=== PATIENT | male | born 2000 | race Caucasian/White ===

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

== ENCOUNTER 2018-12-07 08:15 | Emergency (ER) | payer OTHER ==
[2018-12-07 08:32] VITALS: BP 119/66
--- NOTE | 2018-12-07 08:41 | UC ---
Throat Pain/Nasal Homero HPI - HPI Summary HPI Summary: sore throat x 5 days pain is 7 out of 10, worse with eating , better with Tylenol nasal congestion , cough , pnd, no fever, no chills, + body aches - History of Current Complaint Chief Complaint: UCGeneralIllness Stated Complaint: ST Time Seen by Provider: 12/07/18 08:34 Hx Obtained From: Patient Onset/Duration: Gradual Onset, Lasting Days - 5, Still Present Severity: Moderate Pain Intensity: 7 Cough: Nonproductive Associated Signs & Symptoms: Positive: Nasal Discharge. Negative: Drooling, Wheezing, Hoarseness, Sinus Discomfort, Fever, Vomiting, Rash - Allergies/Home Medications Allergies/Adverse Reactions: Allergies Allergy/AdvReac Type Severity Reaction Status Date / Time No Known Allergies Allergy Verified 12/07/18 08:29 Home Medications: Home Medications Fexofenadine/Pseudoephedrine [Irma-D 24 Hour Tablet] 1 each PO DAILY [History Confirmed 12/07/18] Fluticasone NASAL SPRAY 50MCG* [Flonase NASAL SPRAY 50MCG*] 2 spray BOTH NARES DAILY 12/07/18 [History Confirmed 12/07/18] PMH/Surg Hx/FS Hx/Imm Hx Previously Healthy: Yes - Surgical History Surgical History: Yes Surgery Procedure, Year, and Place: T&A, tubes - Family History Known Family History: Negative: Diabetes - Social History Alcohol Use: Occasionally Substance Use Type: None Smoking Status (MU): Never Smoked Tobacco - Immunization History Vaccination Up to Date: Yes Review of Systems All Other Systems Reviewed And Are Negative: Yes Constitutional: Positive: Chills Skin: Positive: Negative Eyes: Positive: Negative ENT: Positive: Sore Throat, Nasal Discharge Respiratory: Positive: Cough Cardiovascular: Positive: Negative Is Patient Immunocompromised?: No Physical Exam Triage Information Reviewed: Yes Appearance: Well-Appearing, No Pain Distress, Well-Nourished Vital Signs: Initial Vital Signs Temp 98.2 F 12/07/18 08:27 Pulse 68 12/07/18 08:27 Resp 16 12/07/18 08:27 BP 119/66 12/07/18 08:27 Pulse Ox 100 12/07/18 08:27 Vital Signs Reviewed: Yes Eye Exam: Normal Eyes: Positive: Conjunctiva Clear ENT: Positive: Normal ENT inspection, Hearing grossly normal, Pharyngeal erythema, TMs normal. Negative: TM bulging, TM dull, TM red Neck exam: Normal Neck: Positive: Supple, Nontender, No Lymphadenopathy Respiratory: Positive: Chest non-tender, Lungs clear, Normal breath sounds Cardiovascular: Positive: RRR, No Murmur, Pulses Normal Abdominal Exam: Normal Abdomen Description: Positive: Nontender, No Organomegaly, Soft Bowel Sounds: Positive: Present Skin Exam: Normal Throat Pain/Nasal Course/Dx - Differential Dx/Diagnosis Provider Diagnosis: Viral pharyngitis Discharge - Sign-Out/Discharge Documenting (check all that apply): Patient Departure All imaging exams completed and their final reports reviewed: No Studies - Discharge Plan Condition: Stable Disposition: HOME Patient Education Materials: Pharyngitis (ED) Referrals: Filomena Ortiz MD [Primary Care Provider] - If Needed Additional Instructions: negative rapid strep viral pharyngitis no need for antibiotics - Billing Disposition and Condition Condition: STABLE Disposition: Home
== END 2018-12-07 09:16 | disposition home or self-care (01) ==
LOC: UCCORT 08:15
DX: J02.8 Acute pharyngitis due to other specified organisms (principal)
CPT/HCPCS: 87651; 99211; G0463